=== PATIENT | female | born 1960 | race Two or more races ===

== ENCOUNTER 2024-03-02 11:15 | Inpatient (IN) | payer OTHER ==
[~2024-03-02] VITALS: Ht 157.5 cm; Wt 105.2 kg
[2024-03-07] MEDS ORDERED: BUPIVACAINE HCL 30 ML VIAL IJ ONE (16:15)
[2024-03-07] MEDS ORDERED: METRONIDAZOLE/SODIUM CHLORIDE 500 MG/100 ML PIGGYBACK IV ONE (16:15)
[2024-03-07] MEDS ORDERED: LIDOCAINE HCL 1%/EPINEPHRINE 20ML VIAL IJ ONE (16:15)
[2024-03-07] MEDS ORDERED: CEFTRIAXONE SODIUM 2,000 MG VIAL IV ONE (16:15)
[2024-03-07] MEDS ORDERED: RINGERS SOLUTION,LACTATED 1,000 ML IV SCH (17:45)
[2024-03-07] MEDS ORDERED: OxyCODONE HCL 5 MG TABLET (ROXICODONE) PO PRN (17:45)
[2024-03-07] MEDS ORDERED: MORPHINE SULFATE 4 MG/ML CARTRIDGE IV PRN (17:45)
[2024-03-07] MEDS ORDERED: ONDANSETRON HCL 2 MG/ML VIAL IV PRN (17:45)
[2024-03-07] MEDS ORDERED: DEXTROSE 50 % IN WATER 0.5 G/ML DISP.SYRIN IV PRN (18:30)
[2024-03-07] MEDS ORDERED: ENALAPRILAT DIHYDRATE 1.25 MG/ML VIAL IV PRN (18:30)
[2024-03-07] MEDS ORDERED: INSULIN LISPRO 1,000 UNIT/10 ML UNITS SUBCUTANEO PRN ×2 (18:30)
[2024-03-07] MEDS ORDERED: MORPHINE SULFATE 4 MG/ML VIAL IV ONE ×3 (19:05→22:00)
[2024-03-07] MEDS ORDERED: ACETAMINOPHEN 500 MG GEL..CAP PO SCH (20:00)
[2024-03-07 20:54] LABS: ABG PH 7.353 (7.35-7.45); ABG PO2 124.7 mmHg (80-100); ABG pCO2 42.7 mmHg (35-45); BASE EXCESS -2.3 mmol/l; BICARBONATE 23.2 mmol/l (23-25); SaO2 98.5 %; Tco2 24.5 mmol/l
[2024-03-07] MEDS ORDERED: FAMOTIDINE/PF 20 MG/2 ML VIAL IV PUSH SCH (21:00)
[2024-03-07] MEDS ORDERED: SIMETHICONE 125 MG CAPSULE PO SCH (21:00)
[2024-03-07 21:05] LABS: allen test SATISFACTORY; o2 40 %; puncture site RADIAL RIGHT
[2024-03-07 21:48] LABS: HEMATOCRIT 38.2 % (36.0-45.00); HEMOGLOBIN 12.8 g/dL (12.0-15.00); MEAN CELL VOLUME 86.3 fL (80.00-100.00); MEAN CORPUSCULAR HGB CONC 33.6 g/dl (32.0-36.0); PLATELET COUNT 288 K/uL (150-450); RED BLOOD COUNT 4.42 M/uL (4.00-6.00); RED CELL DISTRIBUTION WIDTH 13.5 % (11.5-14.5)
[2024-03-08] MEDS ORDERED: GABAPENTIN 300 MG CAPSULE PO SCH (01:00)
[2024-03-08] MEDS ORDERED: METOCLOPRAMIDE HCL 5 MG/ML VIAL IV SCH (01:00)
[2024-03-08] MEDS ORDERED: CELECOXIB 200 MG CAPSULE PO SCH (05:00)
[2024-03-08] MEDS ORDERED: SYNTHROID 25 MCG PO SCH (06:00)
[2024-03-08 08:00] VITALS: BP 132/70; O2SAT 89
[2024-03-08 08:50] VITALS: O2SAT 91
[2024-03-08] MEDS ORDERED: LOSARTAN POTASSIUM 50 MG TABLET PO SCH (09:00)
[2024-03-08] MEDS ORDERED: HYOSCYAMINE SULFATE 0.125 MG TAB.SUBL SL SCH (09:00)
[2024-03-08] MEDS ORDERED: HYDROCHLOROTHIAZIDE 25 MG TABLET PO SCH (09:00)
[2024-03-08] MEDS ORDERED: VERAPAMIL HCL 80 MG TABLET PO SCH (09:00)
[2024-03-08] MEDS ORDERED: LACTULOSE 20 G/30 ML BLIST.PACK PO SCH (09:00)
[2024-03-08] MEDS ORDERED: LACTOBACILLUS ACIDOPHILUS 1 CAP CAP PO SCH (09:00)
[2024-03-08 10:00] LABS: HEMATOCRIT 39.2 % (36.0-45.00); HEMOGLOBIN 13.1 g/dL (12.0-15.00); MEAN CELL VOLUME 85.9 fL (80.00-100.00); MEAN CORPUSCULAR HEMOGLOBIN 28.8 pg (27.00-32.0); MEAN CORPUSCULAR HGB CONC 33.5 g/dl (32.0-36.0); PLATELET COUNT 298 K/uL (150-450); RED BLOOD COUNT 4.56 M/uL (4.00-6.00); RED CELL DISTRIBUTION WIDTH 13.6 % (11.5-14.5)
[2024-03-08 12:32] VITALS: O2SAT 96
[2024-03-08 12:57] LABS: CALCIUM 8.8 mg/dL (8.5-10.1); GFR 56.18; MAGNESIUM 2.1 mg/dL (1.8-2.4); PHOSPHOROUS 4.7 mg/dL (2.5-4.9); POTASSIUM 3.58 mEq/L (3.5-5.1)
[2024-03-08 16:00] VITALS: BP 133/71; O2SAT 97
[2024-03-08 16:14] VITALS: O2SAT 98
[2024-03-08] MEDS ORDERED: POLYETHYLENE GLYCOL 3350 17 GM BLIST.PACK PO SCH (17:00)
[2024-03-08] MEDS ORDERED: ENOXAPARIN SODIUM 40 MG/0.4 ML SYRINGE SUBCUTANEO SCH (17:00)
[2024-03-08 19:41] VITALS: O2SAT 97
[2024-03-09 00:46] VITALS: BP 118/70; O2SAT 98
[2024-03-09 01:31] VITALS: O2SAT 90
[2024-03-09] MEDS ORDERED: PATIENTS OWN MEDICATION (MEDICAMENTO EN PISO) PO SCH (06:00)
[2024-03-09 08:02] VITALS: BP 154/73; O2SAT 94
[2024-03-09] MEDS ORDERED: ENOXAPARIN SODIUM 40 MG/0.4 ML SYRINGE SUBCUTANEO SCH (09:00)
[2024-03-09 16:00] VITALS: BP 179/74; O2SAT 96
[2024-03-09] MEDS ORDERED: NEURONTIN300 MG PO (17:40)
[2024-03-09] MEDS ORDERED: INTESTINEX680 M1 PO (17:40)
[2024-03-09] MEDS ORDERED: LEVSIN/SL0.125 MG SL (17:40)
== END 2024-03-09 18:10 | disposition home or self-care (01) | DRG 330 ==
LOC: SURH 03-07 07:00 → O/R 03-07 07:02 → SURH 03-07 11:15 → SURG 03-07 18:50
PROVIDERS: Internal Medicine Geriatric Medicine; ADMIT Colon & Rectal Surgery; ATTEND Colon & Rectal Surgery
PROC: 0DBP4ZZ Excision of Rectum, Percutaneous Endoscopic Approach (ICD-10-PCS; 2024-03-07)
PROC: 0DJD8ZZ Inspection of Lower Intestinal Tract, Via Natural or Artificial Opening Endoscopic (ICD-10-PCS; 2024-03-07)
PROC: 0DTN4ZZ Resection of Sigmoid Colon, Percutaneous Endoscopic Approach (ICD-10-PCS; principal; 2024-03-07 07:00)
PROC: 4A12X4Z Monitoring of Cardiac Electrical Activity, External Approach (ICD-10-PCS; 2024-03-08)
DX: K57.20 Diverticulitis of large intestine with perforation and abscess without bleeding (principal); K92.1 Melena; N73.6 Female pelvic peritoneal adhesions (postinfective); N99.4 Postprocedural pelvic peritoneal adhesions

== ENCOUNTER 2024-03-22 14:35 | Emergency (ER) | payer OTHER ==
[~2024-03-22] VITALS: Ht 157.5 cm; Wt 106.1 kg
[~2024-03-22 14:35] MED LIST: INTESTINEX680 M1 PO; LEVSIN/SL0.125 MG SL; NEURONTIN300 MG PO
[2024-03-22 15:29] VITALS: BP 129/82; O2SAT 96
[2024-03-22] MEDS ORDERED: FAMOTIDINE/PF 20 MG in 0.9 % SODIUM CHLORIDE 8 ML IV PUSH STA (16:24)
[2024-03-22] MEDS ORDERED: 0.9 % SODIUM CHLORIDE 1,000 ML IV SCH (16:30)
[2024-03-22] MEDS ORDERED: ONDANSETRON HCL 2 MG/ML VIAL IV ONE (16:30)
[2024-03-22] MEDS ORDERED: MEPERIDINE HCL/PF 50 MG/ML VIAL IM ONE (16:30)
[2024-03-22 16:48] LABS: HEMATOCRIT 39.4 % (36.0-45.00); HEMOGLOBIN 13.3 g/dL (12.0-15.00); MEAN CELL VOLUME 85.3 fL (80.00-100.00); MEAN CORPUSCULAR HEMOGLOBIN 28.9 pg (27.00-32.0); MEAN CORPUSCULAR HGB CONC 33.8 g/dl (32.0-36.0); PLATELET COUNT 466 K/uL (150-450); RED BLOOD COUNT 4.62 M/uL (4.00-6.00); RED CELL DISTRIBUTION WIDTH 13.5 % (11.5-14.5)
[2024-03-22 17:08] LABS: ALBUMIN 3.3 gm/dL (3.4-5.0); BILIRUBIN TOTAL 0.61 mg/dL (0.3-1.2); BILIRUBIN,CONJUGATED 0.22 mg/dL (0.0-0.2); BILIRUBIN,UNCONJUGATED 0.39 mg/dL (0.0-0.6); CALCIUM 9.2 mg/dL (8.5-10.1); CREATININE SERUM 0.76 mg/dL (0.55-1.02); GFR 76.86; GLOBULINA 4.4 G/DL (2.4-3.5); POTASSIUM 4.2 mEq/L (3.5-5.1); TOTAL PROTEIN 7.7 gm/dL (6.4-8.2)
[2024-03-22] MEDS ORDERED: ONDANSETRON ODT8 MG PO (20:18)
[2024-03-22] MEDS ORDERED: PEPCID AC20 MG PO (20:18)
[2024-03-22] MEDS ORDERED: LEVSIN/SL0.125 MG SL (20:18)
[2024-03-22] MEDS ORDERED: CARAFATE1 GM PO (20:18)
[2024-03-22] MEDS ORDERED: MAG HYDROX/ALUMINUM HYD/SIMETH 30 ML BLIST.PACK PO ONE (20:30)
[2024-03-22] MEDS ORDERED: SUCRALFATE 1 G TABLET PO ONE (20:30)
== END 2024-03-22 22:14 | disposition home or self-care (01) ==
LOC: ER 14:37
PROVIDERS: General Practice
DX: R10.9 Unspecified abdominal pain (principal); Z88.0 Allergy status to penicillin; Z88.1 Allergy status to other antibiotic agents
CPT/HCPCS: 36415; 76700; 96365; 96366; 96372; 99284; J2405; J3490; J7030

== ENCOUNTER 2024-03-25 12:29 | Emergency (ER) | payer OTHER ==
[~2024-03-25] VITALS: Ht 157.5 cm; Wt 104.3 kg
[~2024-03-25 12:29] MED LIST changes: +CARAFATE1 GM PO; +ONDANSETRON ODT8 MG PO; +PEPCID AC20 MG PO
[2024-03-25 13:05] VITALS: BP 171/76; O2SAT 96
[2024-03-25] MEDS ORDERED: KETOROLAC TROMETHAMINE 15 MG VIAL IV ONE (15:15)
[2024-03-25] MEDS ORDERED: KETOROLAC TROMETHAMINE 60 MG VIAL IM ONE (15:30)
[2024-03-25 16:00] LABS: HEMATOCRIT 37.4 % (36.0-45.00); HEMOGLOBIN 12.3 g/dL (12.0-15.00); MEAN CELL VOLUME 86.1 fL (80.00-100.00); MEAN CORPUSCULAR HEMOGLOBIN 28.3 pg (27.00-32.0); MEAN CORPUSCULAR HGB CONC 32.8 g/dl (32.0-36.0); PLATELET COUNT 454 K/uL (150-450); RED BLOOD COUNT 4.34 M/uL (4.00-6.00); RED CELL DISTRIBUTION WIDTH 13.3 % (11.5-14.5)
[2024-03-25 16:33] LABS: ALBUMIN 3.3 gm/dL (3.4-5.0); BILIRUBIN TOTAL 0.39 mg/dL (0.3-1.2); CALCIUM 9.2 mg/dL (8.5-10.1); CREATININE SERUM 0.6 mg/dL (0.55-1.02); GFR 100.97; GLOBULINA 4.2 G/DL (2.4-3.5); POTASSIUM 4.11 mEq/L (3.5-5.1); TOTAL PROTEIN 7.5 gm/dL (6.4-8.2)
[2024-03-25 16:52] LABS: INR 1.07; PARTIAL THROMBOPLASTIN TIME 30.8 SECONDS (22.0-34.0); PROTHROMBIN TIME 11.6 SECONDS (9.0-11.5)
[2024-03-25 17:06] LABS: PH,URINE 5.5 (5.0-8.0); URINE APPEARANCE Clear; URINE BILIRRUBIN Negative (NEGATIVE); URINE BLOOD Negative; URINE COLOR Yellow; URINE GLUCOSE Negative (NEGATIVE); URINE LEUKOCYTE Negative; URINE NITRATE Negative; URINE PROTEIN 30 (NEGATIVE)
[2024-03-25 17:10] LABS: URINE BACTERIA 24.4 uL (0.0-1933); URINE EPITHELIAL CELLS 15.8 uL (0.0-38.8); URINE RBC 23.8 uL (0.0-20.8); URINE WBC 5.3 uL (0.0-23.2)
[2024-03-25 17:18] LABS: URINE CAST 0.14 uL (0.0-1.40); URINE KETONE 40 (NEGATIVE)
[2024-03-25] MEDS ORDERED: PEPCID AC20 MG PO (19:46)
[2024-03-25] MEDS ORDERED: DICY20TA PO (19:46)
[2024-03-25] MEDS ORDERED: METRONIDAZOLE500 MG PO (19:46)
== END 2024-03-25 19:51 | disposition home or self-care (01) ==
LOC: ER 12:31
PROVIDERS: General Practice
DX: N30.90 Cystitis, unspecified without hematuria (principal); K57.90 Diverticulosis of intestine, part unspecified, without perforation or abscess without bleeding; R10.9 Unspecified abdominal pain; Z20.822 Contact with and (suspected) exposure to COVID-19; I10 Essential (primary) hypertension; E11.9 Type 2 diabetes mellitus without complications; Z88.0 Allergy status to penicillin; Z88.1 Allergy status to other antibiotic agents
CPT/HCPCS: 36415; 74177; Q9965